=== PATIENT | male | born 1940 | race Caucasian/White ===

== ENCOUNTER 2018-12-19 09:05 | Inpatient (IN) | payer MEDICARE ==
[~2018-12-19] VITALS: Ht 190.5 cm; Wt 79.5 kg
[~2018-12-19 09:05] MED LIST: ASPI81TA52 PO; CYAN1TAB7 SL; FERR325T28 PO; IBUP-1984 PO; LINA5TAB4 PO; LOSA1TAB39 PO; MULT-1179 PO
[2018-12-19 10:14] LABS: BASOPHILS % (AUTO) 0.3 % (0-1); EOSINOPHILS % (AUTO) 0.2 % (0-6); HEMATOCRIT 25.4 % (42.0-52.0); HEMOGLOBIN 8.5 g/dl (14.0-17.9); LYMPHOCYTES # (AUTO) 0.7 X10'3 (1.1-4.8); LYMPHOCYTES % (AUTO) 23.7 % (21-51); MEAN CORPUSCULAR HEMOGLOBIN 34.9 PG (27.0-31.0); MEAN CORPUSCULAR HGB CONC 33.3 g/dL (33.0-36.5); MEAN CORPUSCULAR VOLUME 104.7 FL (78-98); MEAN PLATELET VOLUME 9.7 FL (7.4-10.4); MONOCYTES # (AUTO) 0.2 X10'3 (0-0.9); MONOCYTES % (AUTO) 7.5 % (2-12); NEUTROPHILS % (AUTO) 68.3 % (42-75); RED BLOOD COUNT 2.43 X10'6 (4.70-6.10); RED CELL DISTRIBUTION WIDTH 19.7 % (11.5-14.5); WHITE BLOOD COUNT 2.9 X10'3 (4.5-11.0)
[2018-12-19 10:21] LABS: PLATELET COUNT 50 X10'3 (140-440)
[2018-12-19 10:27] LABS: ALANINE AMINOTRANSFERASE 16 U/L (12-78); ALBUMIN 3.3 G/DL (3.4-5.0); ALBUMIN/GLOBULIN RATIO 0.8 (1.1-1.5); ALKALINE PHOSPHATASE 69 IU/L (46-116); ANION GAP 11 (8-16); ASPARTATE AMINO TRANSFERASE 12 U/L (10-37); BILIRUBIN,TOTAL 1.4 MG/DL (0.1-1.0); BLOOD UREA NITROGEN 19 MG/DL (7-18); BUN/CREATININE RATIO 13.6 (5.4-32.0); CALCIUM 8.9 MG/DL (8.5-10.1); CHLORIDE 106 MMOL/L (99-107); GLUCOSE 112 MG/DL (70-104); SODIUM 142 MMOL/L (135-145); TOTAL CARBON DIOXIDE 24.6 MMOL/L (24-32); TOTAL PROTEIN 7.5 G/DL (6.4-8.2); eGFR 49 ML/MIN
[2018-12-19 10:31] LABS: D-DIMER 2.89 MG/L FEU (0-0.50); INR 1.2 INR; PARTIAL THROMBOPLASTIN TIME 28 SECONDS (22-32)
[2018-12-19 10:43] LABS: ANISOCYTOSIS 2+; LARGE PLATELETS FEW; PLATELET ESTIMATE DECREASED; STOMATOCYTES P; TOTAL CELLS COUNTED 100
--- NOTE | 2018-12-19 11:30 | NUR ---
RT CALLED AND PAGED FOR BI-PAP
[2018-12-19] MEDS ORDERED: ATOR10TA87 PO (11:50)
[2018-12-19] MEDS ORDERED: SITA50TA PO (11:50)
[2018-12-19] MEDS ORDERED: LORazepam 2 mg/ml vial IV ONE (11:55)
[2018-12-19] MEDS ORDERED: iohexol 350MG/ML 100ml bottle IV ONE (12:03)
[2018-12-19] MEDS ORDERED: LOSA50TA64 PO (12:45)
[2018-12-19] MEDS ORDERED: magnesium 4gm in 100ml NS 100 ML IV PRN (13:35)
[2018-12-19] MEDS ORDERED: magnesium hydroxide 30ml (MOM) UD suspension PO PRN (13:35)
[2018-12-19] MEDS ORDERED: ondansetron/PF 4mg/2ml inj IV PRN (13:35)
[2018-12-19] MEDS ORDERED: HYDROcodone/acetaminophen 10/325mg tab PO PRN (13:35)
[2018-12-19] MEDS ORDERED: magnesium Cl slow-release 64mg tablet PO PRN (13:35)
[2018-12-19] MEDS ORDERED: bisacodyl 10mg suppository rectal RC PRN (13:35)
[2018-12-19] MEDS ORDERED: potassium Cl 40MEQ/NS 500ml 500 ML IV PRN ×2 (13:35)
[2018-12-19] MEDS ORDERED: potassium Cl 20 mEq SR tablet PO PRN (13:35)
[2018-12-19] MEDS ORDERED: acetaminophen 325mg tablet PO PRN ×2 (13:35)
[2018-12-19] MEDS ORDERED: LIDOcaine 1%/PF 5ML 10 MG/ML VIAL ONE (13:35)
[2018-12-19] MEDS ORDERED: metoclopramide 5 mg/ml inj IV PRN (13:35)
[2018-12-19] MEDS ORDERED: HYDROcodone/acetaminophen 5mg/325mg tablet PO PRN (13:35)
[2018-12-19] MEDS ORDERED: mag hydrox/Alum hydrox/simeth 30ml oral suspension PO PRN (13:35)
[2018-12-19] MEDS ORDERED: magnesium 2GM in 50ml NS 50 ML IV PRN (13:35)
[2018-12-19 13:50] VITALS: BP 141/81
[2018-12-19 14:18] VITALS: BP 124/66
--- NOTE | 2018-12-19 14:35 | NUR ---
Patient admitted via gurney, accompanied by ED staff. Transferred to bed in room via ambulation. Tele monitor applied, 2 RN skin assessment done. VS: T-98.0, HR 108, RR 28, 02 89 2L, BP 118/59. Patient has no complaints, and is at bedside.
[2018-12-19 15:09] LABS: BFSOURCE RIGHT PLEURAL FLD; PLEURAL FLUID PH 7.396 (7.63-7.65)
[2018-12-19 15:11] LABS: PHOSPHORUS 3.8 MG/DL (2.3-4.5)
[2018-12-19 15:24] LABS: GLUCOSE,BODY FLUID 116 MG/DL; LDH,BODY FLUID 102 U/L; TOTAL PROTEIN,BODY FLUID 3.2 G/DL
[2018-12-19 16:04] LABS: BFAPPEAR CLEAR
[2018-12-19 16:05] LABS: BF MESOTHELIAL CELLS FEW; BF RBC COUNT 430 /CU MM; BF WBC COUNT 309 /CU MM (0-1000); BFCOLOR YELLOW; BFVOLUME 56 ML; LYMPHOCYTES,BODY FLUID 76 %; MONOCYTES,BODY FLUID 22 %; NEUTROPHILS,BODY FLUID 2 %
--- NOTE | 2018-12-19 17:00 | NUR ---
Paged Dr Spencer regarding patient request for cough drops PAGER ID: [phone] MESSAGE: Loly [phone]. RE Ivonne Brandt. patient is requesting an order for cough drops. Any new orders? Thank you!
[2018-12-19] MEDS ORDERED: benzocaine/menthol oral lozeng 1 EACH BOX MM PRN (17:10)
[2018-12-19 18:00] VITALS: BP 139/68
--- NOTE | 2018-12-19 18:00 | NUR ---
Patient in room PCU 3024. I have received report from Loly HURLEY and had the opportunity to ask questions and assume patient care.
--- NOTE | 2018-12-19 18:00 | NUR ---
Patient in room PCU 3024. I have received report from Loly HURLEY and had the opportunity to ask questions and assume patient care.
--- NOTE | 2018-12-19 18:14 | NUR ---
Problems reprioritized. Patient report given, questions answered & plan of care reviewed with Sinai HURLEY.
[2018-12-19] MEDS ORDERED: temazepam 15mg capsule PO PRN (21:00)
[2018-12-19 22:00] VITALS: BP 140/74
[2018-12-19] MEDS: atorvastatin 10mg tablet PO SCH (22:08)
[2018-12-19] MEDS: furosemide 40mg/4ml inj IV SCH (22:08)
--- NOTE | 2018-12-20 00:54 | NUR ---
Call placed to DR Morton about pt having great difficulty emptying bladder and states "feels like it is constant and starting to hurt". patient has been given IV Lasix which is causing him to need to urinate often but he is only going small amounts at a time and sitting on the edge of the bed for the last hour just holding the urinal under himself. Order received to place a Bansal catheter.
--- NOTE | 2018-12-20 01:41 | NUR ---
Nurse began to place Bansal Catheter on patient and when it went in he stated "oh no I think it is going to hurt and now I don't want it anymore." So nurse stopped placing it. The pt then stated he wanted to sit on the toilet and that "it would feel better". Nurse helped pt to bathroom and instructed him to pull light cord when he was done and he stated understanding. He then stated it felt better and was able to "come out better".
[2018-12-20 02:00] VITALS: BP 125/62
[2018-12-20 06:21] LABS: BASOPHILS % (AUTO) 0.3 % (0-1); EOSINOPHILS % (AUTO) 0 % (0-6); HEMATOCRIT 27.6 % (42.0-52.0); HEMOGLOBIN 9.2 g/dl (14.0-17.9); LYMPHOCYTES # (AUTO) 0.6 X10'3 (1.1-4.8); LYMPHOCYTES % (AUTO) 18.4 % (21-51); MEAN CORPUSCULAR HEMOGLOBIN 34.7 PG (27.0-31.0); MEAN CORPUSCULAR HGB CONC 33.2 g/dL (33.0-36.5); MEAN CORPUSCULAR VOLUME 104.3 FL (78-98); MEAN PLATELET VOLUME 10.3 FL (7.4-10.4); MONOCYTES # (AUTO) 0.3 X10'3 (0-0.9); MONOCYTES % (AUTO) 9.7 % (2-12); NEUTROPHILS # (AUTO) 2.4 X10'3 (1.8-7.7); NEUTROPHILS % (AUTO) 71.6 % (42-75); RED BLOOD COUNT 2.65 X10'6 (4.70-6.10); RED CELL DISTRIBUTION WIDTH 19.2 % (11.5-14.5); WHITE BLOOD COUNT 3.4 X10'3 (4.5-11.0)
[2018-12-20 06:28] LABS: PLATELET COUNT 50 X10'3 (140-440)
[2018-12-20 06:30] VITALS: BP 114/59
--- NOTE | 2018-12-20 06:35 | NUR ---
Patient in room PCU 3024A. I have received report from Sinai HURLEY and had the opportunity to ask questions and assume patient care.
[2018-12-20 06:39] LABS: ALBUMIN 3.2 G/DL (3.4-5.0); ANION GAP 10 (8-16); BLOOD UREA NITROGEN 20 MG/DL (7-18); BUN/CREATININE RATIO 13.7 (5.4-32.0); CALCIUM 8.7 MG/DL (8.5-10.1); CHLORIDE 105 MMOL/L (99-107); CHOL/HDL RATIO 1.8 (0.00-4.99); CHOLESTEROL 68 MG/DL (0-200); CREATININE 1.46 MG/DL (0.60-1.10); GLUCOSE 123 MG/DL (70-104); HDL CHOLESTEROL 37 MG/DL (35-60); LDL CHOLESTEROL 25 MG/DL (50-100); MAGNESIUM 1.5 MG/DL (1.5-2.4); PHOSPHORUS 3.7 MG/DL (2.3-4.5); SODIUM 140 MMOL/L (135-145); TOTAL CARBON DIOXIDE 25.5 MMOL/L (24-32); TRIGLYCERIDES 82 MG/DL (20-135); eGFR 47 ML/MIN
[2018-12-20 06:53] LABS: LARGE PLATELETS FEW; PLATELET ESTIMATE DECREASED
[2018-12-20 06:54] LABS: ANISOCYTOSIS 2+
[2018-12-20] MEDS: losartan 50mg tablet PO SCH (07:33)
[2018-12-20] MEDS: aspirin 81mg tablet.DR PO SCH (07:33)
[2018-12-20] MEDS: furosemide 40mg/4ml inj IV SCH (07:41)
[2018-12-20] MEDS: K and/or MAG REPLACEMENT MC SCH (08:00)
--- NOTE | 2018-12-20 09:03 | NUR ---
PAGER ID: [phone] MESSAGE: Loly [phone]. RE: Rikki, P. [id number]. Pt states last A1C was 5.4. Patient is requesting CC diet instead of current HH order. Would you like a new diet order and would you like a new A1C?
--- NOTE | 2018-12-20 09:04 | NUR ---
PAGER ID: [phone] MESSAGE: Loly [phone]. RE: Rikki, P. [id number]. Pt states last A1C was 5.4. Patient is requesting CC diet instead of current HH order. Would you like a new diet order and would you like a new A1C?
--- NOTE | 2018-12-20 09:05 | NUR ---
New orders per Dr Spencer for A1C and CC diet
[2018-12-20 11:00] VITALS: BP 122/60
[2018-12-20 11:12] LABS: HEMOGLOBIN A1C 5.1 % (4.5-6.2)
[2018-12-20 15:00] VITALS: BP 114/54
--- NOTE | 2018-12-20 18:31 | NUR ---
Problems reprioritized. Patient report given, questions answered & plan of care reviewed with Arnol HURLEY and Migue HURLEY.
--- NOTE | 2018-12-20 18:33 | NUR ---
Patient in room PCU 3028H. I have received report from XAVI LOREDO and had the opportunity to ask questions and assume patient care. 20G R AC SL. AWAKE FOR BEDSIDE REPORT AND STABLE AT THIS TIME. WILL CONTINUE TO MONITOR CLOSELY.
[2018-12-20 19:00] VITALS: BP 133/62
[2018-12-20] MEDS: furosemide 20 MG/2 ML vial IV SCH (19:04)
[2018-12-20] MEDS: atorvastatin 10mg tablet PO SCH (20:28)
[2018-12-20 23:00] VITALS: BP 112/48
[2018-12-21 03:00] VITALS: BP 108/50
[2018-12-21 05:24] LABS: BASOPHILS % (AUTO) 0.6 % (0-1); EOSINOPHILS % (AUTO) 0.3 % (0-6); HEMOGLOBIN 7.4 g/dl (14.0-17.9); LYMPHOCYTES # (AUTO) 0.9 X10'3 (1.1-4.8); LYMPHOCYTES % (AUTO) 48.1 % (21-51); MEAN CORPUSCULAR HGB CONC 33.8 g/dL (33.0-36.5); MEAN CORPUSCULAR VOLUME 103.6 FL (78-98); MEAN PLATELET VOLUME 10.1 FL (7.4-10.4); MONOCYTES # (AUTO) 0.2 X10'3 (0-0.9); MONOCYTES % (AUTO) 9.6 % (2-12); NEUTROPHILS # (AUTO) 0.8 X10'3 (1.8-7.7); NEUTROPHILS % (AUTO) 41.4 % (42-75); RED BLOOD COUNT 2.13 X10'6 (4.70-6.10); RED CELL DISTRIBUTION WIDTH 18.8 % (11.5-14.5); WHITE BLOOD COUNT 1.9 X10'3 (4.5-11.0)
[2018-12-21 05:29] LABS: PLATELET COUNT 46 X10'3 (140-440)
--- NOTE | 2018-12-21 05:38 | NUR ---
CRITICAL VALUE TAKEN BY AMARJIT IN LAB. HCT 22.[address] MYERS NOTIFIED. NO NEW ORDERS AT THIS TIME.
[2018-12-21 05:39] LABS: ALBUMIN 2.8 G/DL (3.4-5.0); ANION GAP 8 (8-16); BLOOD UREA NITROGEN 20 MG/DL (7-18); BUN/CREATININE RATIO 14.8 (5.4-32.0); CALCIUM 8.5 MG/DL (8.5-10.1); CHLORIDE 104 MMOL/L (99-107); CREATININE 1.35 MG/DL (0.60-1.10); GLUCOSE 101 MG/DL (70-104); MAGNESIUM 1.4 MG/DL (1.5-2.4); PHOSPHORUS 4.3 MG/DL (2.3-4.5); POTASSIUM 3.4 MMOL/L (3.5-5.1); SODIUM 139 MMOL/L (135-145); TOTAL CARBON DIOXIDE 27.1 MMOL/L (24-32); eGFR 51 ML/MIN
[2018-12-21 06:00] VITALS: BP 127/77
[2018-12-21 06:13] LABS: TOTAL CELLS COUNTED 100
[2018-12-21 06:14] LABS: ANISOCYTOSIS 2+; PLATELET ESTIMATE DECREASED
--- NOTE | 2018-12-21 06:22 | NUR ---
Problems reprioritized. Patient report given, questions answered & plan of care reviewed with XAVI Ortiz.
--- NOTE | 2018-12-21 06:23 | NUR ---
[place] documentation: I have reviewed and agree with all interventions, assessments performed and documented by Migue HURLEY. [place] Medication Administration: For this medication-pass time frame, all medication were reviewed, dispensed, administered and documented per hospital policy by Migue HURLEY.
--- NOTE | 2018-12-21 06:43 | NUR ---
Patient in room PCU 3024. I have received report from XAVI Camarena and had the opportunity to ask questions and assume patient care.
--- NOTE | 2018-12-21 07:23 | NUR ---
PAGER ID: [phone] MESSAGE: [id number] Rich Brandt: H&H 7.4 and 22. Noc RN notified [facility] but he said to defer it to daytime hospitalist to see what you wanted. XAVI Ortiz Ext [phone]
[2018-12-21] MEDS: K and/or MAG REPLACEMENT MC SCH (08:21)
[2018-12-21] MEDS: losartan 50mg tablet PO SCH (08:23)
[2018-12-21] MEDS: aspirin 81mg tablet.DR PO SCH (08:23)
[2018-12-21] MEDS: potassium Cl 20 mEq SR tablet PO PRN ×2 (08:23→13:44)
[2018-12-21] MEDS: furosemide 20 MG/2 ML vial IV SCH (08:24)
[2018-12-21 11:00] VITALS: BP 144/63
[2018-12-21] MEDS ORDERED: FURO20TA4 PO (12:41)
--- NOTE | 2018-12-21 13:16 | NUR ---
O2 Sat at rest on room air:_94__% If below 89%: Recovery O2 Sat at rest on ___LPM:___%:___% via (mask/nasal cannula, etc..) No further documentation is necessary. If O2 Sat did not drop below 89% on room air,ambulate patient on room air. O2 Sat while ambulating on room air:__84_% Recovery O2 Sat while ambulating on __2_LPM:__91_% No further documentation is necessary. If patient does not drop below 89% while ambulating, he/she does not qualify for home O2.
--- NOTE | 2018-12-21 13:18 | NUR ---
Patient qualifies for Home O2 need to wait for oxygen delivery before patient can go home.
--- NOTE | 2018-12-21 13:24 | NUR ---
Left message at Dr Hernandes's office to have the office call back so I could set up an appointment.
--- NOTE | 2018-12-21 15:44 | NUR ---
Meds called into [facility] in [place].
--- NOTE | 2018-12-21 18:54 | NUR ---
CHF AHA edu, Rehab schedule and echo done. Appnt set up within a week
--- NOTE | 2018-12-21 18:55 | NUR ---
IV and tele DC'd. Stable per MD for DC. All core measures met.
== END 2018-12-21 16:07 | disposition home health service (06) | DRG 291 ==
LOC: ER 12:56 → PCU 3S 13:32 → CMPBEDREQ 19:31
PROVIDERS: ADMIT Family Medicine; ATTEND Family Medicine
PROC: 0W9B3ZZ Drainage of Left Pleural Cavity, Percutaneous Approach (ICD-10-PCS; principal; 2018-12-19)
PROC: 0W993ZX Drainage of Right Pleural Cavity, Percutaneous Approach, Diagnostic (ICD-10-PCS; 2018-12-19)
PROC: B32T1ZZ Computerized Tomography (CT Scan) of Left Pulmonary Artery using Low Osmolar Contrast (ICD-10-PCS; 2018-12-19)
PROC: B32S1ZZ Computerized Tomography (CT Scan) of Right Pulmonary Artery using Low Osmolar Contrast (ICD-10-PCS; 2018-12-19)
PROC: BW211ZZ Computerized Tomography (CT Scan) of Abdomen and Pelvis using Low Osmolar Contrast (ICD-10-PCS; 2018-12-19)
PROC: 5A09357 Assistance with Respiratory Ventilation, Less than 24 Consecutive Hours, Continuous Positive Airway Pressure (ICD-10-PCS; 2018-12-19)
DX: I13.0 Hypertensive heart and chronic kidney disease with heart failure and stage 1 through stage 4 chronic kidney disease, or unspecified chronic kidney disease (principal); I50.31 Acute diastolic (congestive) heart failure; D61.818 Other pancytopenia; J91.8 Pleural effusion in other conditions classified elsewhere; E11.22 Type 2 diabetes mellitus with diabetic chronic kidney disease; E78.5 Hyperlipidemia, unspecified; E87.6 Hypokalemia; F41.1 Generalized anxiety disorder; H35.30 Unspecified macular degeneration; R74.8 Abnormal levels of other serum enzymes; I27.20 Pulmonary hypertension, unspecified; H54.8 Legal blindness, as defined in USA; I25.10 Atherosclerotic heart disease of native coronary artery without angina pectoris; N18.9 Chronic kidney disease, unspecified; N40.0 Benign prostatic hyperplasia without lower urinary tract symptoms; Z93.3 Colostomy status; Z95.5 Presence of coronary angioplasty implant and graft; Z79.82 Long term (current) use of aspirin; Z79.899 Other long term (current) drug therapy; Z85.048 Personal history of other malignant neoplasm of rectum, rectosigmoid junction, and anus
CPT/HCPCS: 32555; 36415; 71045; 71275; 74177; 80048; 80053; 80061; 82945; 83036; 83605; 83615; 83735; 83880; 83986; 84100; 84145; 84157; 84484; 85025; 85379; 85610; 85730; 87040; 87070; 88108; 88305; 88341; 88342; 89051; 93005; 93306; 94660; 94760; 96374; 97116; 97162; 97530; 99285; G0378; J1940; J2001; J2060; Q9967

== ENCOUNTER 2019-06-01 06:32 | Day surgery (SDC) | payer MEDICARE ==
[~2019-06-01] VITALS: Ht 188 cm; Wt 81.2 kg
[~2019-06-01 06:32] MED LIST changes: -ASPI81TA52 PO; +ATOR10TA87 PO; -CYAN1TAB7 SL; -FERR325T28 PO; +FURO20TA4 PO; -IBUP-1984 PO; -LINA5TAB4 PO; -LOSA1TAB39 PO; +LOSA50TA64 PO; -MULT-1179 PO; +SITA50TA PO
[2019-06-01] MEDS ORDERED: FURO-150 PO (07:05)
[2019-06-01 07:07] VITALS: BP 109/59
--- NOTE | 2019-06-01 09:22 | NUR ---
PATIENT GOT ULTRASOUND OF THE LUNGS BY [facility]O AGUIRRE. THERE WAS NOT ENOUGH FLUID AFTER ULTRASOUND TO DO THE PROCEDURE. PROCEDURE WAS CANCELLED.
== END 2019-06-01 09:22 | disposition home or self-care (01) ==
LOC: SSTAY O 06:32
PROVIDERS: ATTEND Radiology Diagnostic Radiology
DX: J90 Pleural effusion, not elsewhere classified (principal); E11.22 Type 2 diabetes mellitus with diabetic chronic kidney disease; I12.9 Hypertensive chronic kidney disease with stage 1 through stage 4 chronic kidney disease, or unspecified chronic kidney disease; N18.9 Chronic kidney disease, unspecified; E78.5 Hyperlipidemia, unspecified; D64.9 Anemia, unspecified; I25.10 Atherosclerotic heart disease of native coronary artery without angina pectoris; Z85.048 Personal history of other malignant neoplasm of rectum, rectosigmoid junction, and anus; Z88.8 Allergy status to other drugs, medicaments and biological substances; Z79.899 Other long term (current) drug therapy
CPT/HCPCS: 76604; 76705